=== PATIENT | female | born 1995 | race Caucasian/White ===

== ENCOUNTER 2018-03-02 19:38 | Emergency (ER) | payer OTHER ==
[~2018-03-02] VITALS: Ht 162.6 cm; Wt 111.4 kg
[2018-03-02 19:44] VITALS: BP 123/68
== END 2018-03-02 20:50 | disposition home or self-care (01) ==
LOC: ED 20:44
DX: S16.1XXA Strain of muscle, fascia and tendon at neck level, initial encounter (principal); V49.49XA Driver injured in collision with other motor vehicles in traffic accident, initial encounter; Y93.89 Activity, other specified; Y92.410 Unspecified street and highway as the place of occurrence of the external cause; Y99.8 Other external cause status
CPT/HCPCS: 72050; 99283

== ENCOUNTER → 2020-02-13 | Outpatient (CLI) | payer OTHER ==
[2020-02-13 08:27] LABS: FREE T4 (FREE THYROXINE) 1.05 ng/dL (0.76-1.46)
== END | disposition home or self-care (01) ==
LOC: LAB 07:51
PROVIDERS: ATTEND Obstetrics & Gynecology Gynecology
DX: Z20.2 Contact with and (suspected) exposure to infections with a predominantly sexual mode of transmission (principal); N93.9 Abnormal uterine and vaginal bleeding, unspecified
CPT/HCPCS: 36415; 84439; 84443; 86592; 86694; 86695; 86696; 86706; 86803; 87806; G0475